=== PATIENT | female | born 1970 | race Caucasian/White ===

== ENCOUNTER 2017-12-17 13:47 | Emergency (ER) | payer BC ==
[2017-12-17 15:13] VITALS: BP 118/82
--- NOTE | 2017-12-17 16:13 | UC ---
Complaint Female HPI - HPI Summary HPI Summary: This patient is a 47 year old F with a current dx of MS presenting to [facility] accompanied by a male with a chief complaint of foul smelling urine that began . The patient rates the pain 0/10 in severity. Patient reports urinary incontinence, loose stool, chills, diaphoresis, and increased LE muscle spasms which are usually controlled by a Baclofen pump. Pt states that the illness began with muscles spasm and diaphoresis which progressed to current sx. Pt is in a motorized wheel chair and reports being numb from the neck down. Pt states she has had 5 UTIs in the last year and bladder scans have showed 200-300 of urinary retention at baseline which causes bacterial colonization. She states she has not had muscle spasms with prior UTIs. Pt usually self caths at home but she is in town for vacation and has not been doing that because it is too difficult. She has had MS for 24 years. 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 Onset/Duration: Lasting Days - 1, Still Present Timing: Constant Severity Initially: Mild Severity Currently: None Pain Intensity: 0 Pain Scale Used: 0-10 Numeric Associated Signs And Symptoms: Negative: Back Pain, Nausea - Allergies/Home Medications Allergies/Adverse Reactions: Allergies Allergy/AdvReac Type Severity Reaction Status Date / Time No Known Allergies Allergy Verified 12/17/17 15:14 Home Medications: Home Medications Baclofen INTRATHECAL (NF) [Gablofen (NF)] 40,000 mcg INTRATHEC DAILY 12/17/17 [ History Confirmed 12/17/17] Dimethyl Fumarate(NF) [Tecfidera(NF)] 240 mg PO BID 12/17/17 [History Confirmed 12/17/17] LORazepam TAB(*) [Ativan 0.5 MG TAB (*)] 0.5 mg PO TID PRN 12/17/17 [History Confirmed 12/17/17] Solifenacin(NF) [Vesicare(NF)] 10 mg PO EVERY OTHER DAY 12/17/17 [History Confirmed 12/17/17] PMH/Surg Hx/FS Hx/Imm Hx Endocrine History: Other Other Endocrine History: MS Other History Of: Negative For: HIV - Surgical History Surgical History: Yes Surgery Procedure, Year, and Place: 2017 - Family History Known Family History: Negative: Blood Disorder - Social History Alcohol Use: None Substance Use Type: None Smoking Status (MU): Never Smoked Tobacco Review of Systems Constitutional: Chills, Other - diaphoresis Gastrointestinal: Other - loose stool Genitourinary: Other - foul smelling urine and urinary incontinence Musculoskeletal: Other: - increased muscle spasms All Other Systems Reviewed And Are Negative: Yes Physical Exam Triage Information Reviewed: Yes Appearance: Ill-Appearing - chronic ill appearance, MS Vital Signs: Initial Vital Signs Temp 99.6 F 12/17/17 15:07 Pulse 78 12/17/17 15:07 Resp 16 12/17/17 15:07 BP 118/82 12/17/17 15:07 Pulse Ox 100 12/17/17 15:07 Vital Signs Reviewed: Yes ENT Exam: Normal ENT: Positive: Pharynx normal, TMs normal Neck: Positive: Nontender Respiratory: Positive: Lungs clear, Normal breath sounds, No respiratory distress Cardiovascular: Positive: RRR, No Murmur Abdomen Description: Positive: Nontender Musculoskeletal: Positive: Other: - no deformity Neurological: Positive: Other: - alert and oriented times three. Spasms in both lower extremities at times. Wheel chair bound. Psychological: Positive: Normal Response To Family Skin: Negative: rashes Complaint Female Dx - Course Course Of Treatment: 47 yr old with MS and chronic wheel chair use, chronic urine retention, not feeling well, and spasm in muscles. I have recommened she go to the ER for a lab evaluation and further work up. They do not want an ambulance and they prefer to go to the ER with driving her. - Differential Dx/Diagnosis Provider Diagnoses: UTI. Multiple sclerosis. Discharge - Sign-Out/Discharge Documenting (check all that apply): Patient Departure All imaging exams completed and their final reports reviewed: No Studies - Discharge Plan Condition: Good Disposition: HOME-RECOMMEND TO ED Patient Education Materials: Urinary Tract Infection in Women (ED), Multiple Sclerosis (DC) Referrals: No Primary Care Phys,NOPCP [Primary Care Provider] - Additional Instructions: [address] , [place] [address] Please go the ER at [facility] For further work up and evaluation for all of your symptoms upon leaving here. - Billing Disposition and Condition Condition: GOOD Disposition: Home-Recommend to ED - Attestation Statements Document Initiated by Scribe: Yes Documenting Scribe: Oren Bentley Provider For Whom Scribe is Documenting (Include Credential): Rufus Webb MD Scribe Attestation: I, Oren Bentley , scribed for Rufus Webb MD on 12/17/17 at 1623. Scribe Documentation Reviewed: Yes Provider Attestation: The documentation as recorded by the Oren cordero accurately reflects the service I personally performed and the decisions made by me, Rufus Webb MD
== END 2017-12-17 16:30 | disposition home health service (06) ==
LOC: UCEAST 13:47
DX: N39.0 Urinary tract infection, site not specified (principal); G35 Multiple sclerosis; M62.838 Other muscle spasm; Z79.899 Other long term (current) drug therapy; Z99.3 Dependence on wheelchair
CPT/HCPCS: 51701; 81003; 87077; 87086; 99202; G0463

== ENCOUNTER 2017-12-17 17:01 | Emergency (ER) | payer BC ==
[2017-12-17 18:28] LABS: ABS Basophils 0 10^3/ul (0-0.2); ABS Eosinophils 0.2 10^3/ul (0-0.6); ABS Lymphocytes 0.7 10^3/ul (1.0-4.8); ABS Monocytes 0.4 10^3/ul (0-0.8); ABS Neutrophils 2.6 10^3/ul (1.5-7.7); ABS Nucleated RBC 0 10^3/ul; Eosinophil % 4.5 % (0-6); Hematocrit 42 % (35-47); Hemoglobin 14.1 g/dl (12.0-16.0); Lymphocyte % 18.1 % (25-47); Mean Corpuscular HGB Conc 34 g/dl (31-36); Mean Corpuscular Hemoglobin 33 pg (27-31); Mean Corpuscular Volume 97 fL (80-97); Mean Platelet Volume 8.4 um3 (7.4-10.4); Nucleated Red Blood Cells % 0.3; Platelet Count 224 10^3/ul (150-450); Red Cell Distribution Width 14 % (10.5-15); White Blood Count 3.9 10^3/ul (3.5-10.8)
[2017-12-17 18:38] LABS: EGFR Non-African American 116.5 (>60)
[2017-12-17] MEDS ORDERED: NS 0.9% 1000 ML* 1,000 ML IV ONE (18:57)
[2017-12-17 19:13] LABS: Urine Appearance Cloudy; Urine Blood 2+ (Negative); Urine Color Yellow; Urine Ketones 1+ (Negative); Urine Protein Negative (Negative); Urine Red Blood Cell 2+(6-10/hpf) (Absent); Urine Specific Gravity 1.008 (1.010-1.030); Urine Urobilinogen Negative (Negative); Urine White Blood Cell 3+(>20/hpf) (Absent)
[2017-12-17] MEDS ORDERED: cefTRIAXone(*) 1 GM in NS 0.9% 50 ML* 50 ML IVPB ONE (19:26)
--- NOTE | 2017-12-17 19:50 | ED ---
GI/ HPI - HPI Summary HPI Summary: Patient with history of MS and decreased sensation from chest down sent from urgent care to ED complains of urinary incontinence and foul odor to urine starting yesterday. Patient has history of recurrent UTIs this year. States she is unable to sense whether she has burning or pain with urination due to decreased sensation from MS. States normal symptoms of UTI are incontinence and foul odor. Patient states she also has had chills and sweats which is uncommon with her UTI. Patient also complains of increasing leg spasms which are more frequent and worse in intensity. Patient has baclofen pump for same, chem bolus and has also been adding oral baclofen and Ativan tonight with no improvement. Patient is here on vacation from [place] and is leaving tomorrow. Denies fever, cough, sore throat, CP, SOB, N/V/D, abdominal pain, change in BM. Medical history is MS. 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 Onset/Duration: Started Days Ago Timing: Constant Severity: Mild Current Severity: None Pain Intensity: 0 Associated Signs and Symptoms: Positive: Negative - Allergy/Home Medications Allergies/Adverse Reactions: Allergies Allergy/AdvReac Type Severity Reaction Status Date / Time No Known Allergies Allergy Verified 12/17/17 17:08 PMH/Surg Hx/FS Hx/Imm Hx Endocrine/Hematology History: Denies: Hx Anticoagulant Therapy Cardiovascular History: Denies: Hx Cardiac Arrest History: Denies: Hx Dialysis Neurological History: Denies: Hx CVA - Surgical History Surgery Procedure, Year, and Place: 2017 Infectious Disease History: No Infectious Disease History: Denies: Traveled Outside the [place] in Last 30 Days - Family History Known Family History: Negative: Blood Disorder - Social History Alcohol Use: None Substance Use Type: Reports: None Smoking Status (MU): Never Smoked Tobacco Review of Systems Positive: Chills Eyes: Negative ENT: Negative Cardiovascular: Negative Respiratory: Negative Gastrointestinal: Negative Positive: incontinence, other Positive: Other Skin: Negative Neurological: Negative Psychological: Normal All Other Systems Reviewed And Are Negative: Yes Physical Exam - Summary Physical Exam Summary: No Leg spasms noted here in the ED during exam. Triage Information Reviewed: Yes Vital Signs On Initial Exam: Initial Vitals Temp Pulse Resp BP Pulse Ox 98.9 F 78 18 115/43 99 12/17/17 17:03 12/17/17 17:03 12/17/17 17:03 12/17/17 17:03 12/17/17 17:03 Vital Signs Reviewed: Yes Appearance: Positive: Well-Appearing Skin: Positive: Warm Head/Face: Positive: Normal Head/Face Inspection Eyes: Positive: Normal Neck: Positive: Supple Respiratory/Lung Sounds: Positive: Clear to Auscultation Cardiovascular: Positive: Normal Abdomen Description: Positive: Nontender Musculoskeletal: Positive: Normal Neurological: Positive: Normal Psychiatric: Positive: Normal AVPU Assessment: Alert - [place] Coma Scale Best Eye Response: 4 - Spontaneous Best Motor Response: 6 - Obeys Commands Best Verbal Response: 5 - Oriented Coma Scale Total: 15 Diagnostics - Vital Signs Vital Signs Temp Pulse Resp BP Pulse Ox 12/17/17 17:03 98.9 F 78 18 115/43 99 - Laboratory Lab Results: Lab Results 12/17/17 12/17/17 12/17/17 Range/Units 18:16 18:16 18:16 WBC 3.9 (3.5-10.8) 10^3/ul RBC 4.30 (4.00-5.40) 10^6/ul Hgb 14.1 (12.0-16.0) g/dl Hct 42 (35-47) % MCV 97 (80-97) fL MCH 33 H (27-31) pg MCHC 34 (31-36) g/dl RDW 14 (10.5-15) % Plt Count 224 (150-450) 10^3/ul MPV 8.4 (7.4-10.4) um3 Neut % (Auto) 66.2 (38-83) % Lymph % (Auto) 18.1 L (25-47) % [place] % (Auto) 10.1 H (0-7) % Eos % (Auto) 4.5 (0-6) % Baso % (Auto) 1.1 (0-2) % Absolute Neuts (auto) 2.6 (1.5-7.7) 10^3/ul Absolute Lymphs (auto) 0.7 L (1.0-4.8) 10^3/ul Absolute Monos (auto) 0.4 (0-0.8) 10^3/ul Absolute Eos (auto) 0.2 (0-0.6) 10^3/ul Absolute Basos (auto) 0 (0-0.2) 10^3/ul Absolute Nucleated RBC 0 10^3/ul Nucleated RBC % 0.3 Sodium 138 (135-145) mmol/L Potassium 4.1 (3.5-5.0) mmol/L Chloride 98 L (101-111) mmol/L Carbon Dioxide 30 (22-32) mmol/L Anion Gap 10 (2-11) mmol/L BUN 19 (6-24) mg/dL Creatinine 0.56 (0.51-0.95) mg/dL Est GFR ( Amer) 141.0 (>60) Est GFR (Non-Af Amer) 116.5 (>60) BUN/Creatinine Ratio 33.9 H (8-20) Glucose 85 (70-100) mg/dL Lactic Acid 0.8 (0.5-2.0) mmol/L Calcium 10.2 (8.6-10.3) mg/dL Total Bilirubin 0.50 (0.2-1.0) mg/dL AST 21 (13-39) U/L ALT 21 (7-52) U/L Alkaline Phosphatase 78 (34-104) U/L Total Protein 7.6 (6.4-8.9) g/dL Albumin 4.7 (3.2-5.2) g/dL Globulin 2.9 (2-4) g/dL Albumin/Globulin Ratio 1.6 (1-3) Beta HCG, Quant 3.62 mIU/mL Urine Color Urine Appearance Urine pH (5-9) Ur Specific [place] (1.010-1.030) Urine Protein (Negative) Urine Ketones (Negative) Urine Blood (Negative) Urine Nitrate (Negative) Urine Bilirubin (Negative) Urine Urobilinogen (Negative) Ur Leukocyte Esterase (Negative) Urine WBC (Auto) (Absent) Urine RBC (Auto) (Absent) Urine Bacteria (Absent) Urine Glucose (Negative) Urine Ascorbic Acid (Negative) 12/17/17 Range/Units 19:02 WBC (3.5-10.8) 10^3/ul RBC (4.00-5.40) 10^6/ul Hgb (12.0-16.0) g/dl Hct (35-47) % MCV (80-97) fL MCH (27-31) pg MCHC (31-36) g/dl RDW (10.5-15) % Plt Count (150-450) 10^3/ul MPV (7.4-10.4) um3 Neut % (Auto) (38-83) % Lymph % (Auto) (25-47) % [place] % (Auto) (0-7) % Eos % (Auto) (0-6) % Baso % (Auto) (0-2) % Absolute Neuts (auto) (1.5-7.7) 10^3/ul Absolute Lymphs (auto) (1.0-4.8) 10^3/ul Absolute Monos (auto) (0-0.8) 10^3/ul Absolute Eos (auto) (0-0.6) 10^3/ul Absolute Basos (auto) (0-0.2) 10^3/ul Absolute Nucleated RBC 10^3/ul Nucleated RBC % Sodium (135-145) mmol/L Potassium (3.5-5.0) mmol/L Chloride (101-111) mmol/L Carbon Dioxide (22-32) mmol/L Anion Gap (2-11) mmol/L BUN (6-24) mg/dL Creatinine (0.51-0.95) mg/dL Est GFR ( Amer) (>60) Est GFR (Non-Af Amer) (>60) BUN/Creatinine Ratio (8-20) Glucose (70-100) mg/dL Lactic Acid (0.5-2.0) mmol/L Calcium (8.6-10.3) mg/dL Total Bilirubin (0.2-1.0) mg/dL AST (13-39) U/L ALT (7-52) U/L Alkaline Phosphatase (34-104) U/L Total Protein (6.4-8.9) g/dL Albumin (3.2-5.2) g/dL Globulin (2-4) g/dL Albumin/Globulin Ratio (1-3) Beta HCG, Quant mIU/mL Urine Color Yellow Urine Appearance Cloudy Urine pH 7.0 (5-9) Ur Specific [place] 1.008 L (1.010-1.030) Urine Protein Negative (Negative) Urine Ketones 1+ A (Negative) Urine Blood 2+ A (Negative) Urine Nitrate Negative (Negative) Urine Bilirubin Negative (Negative) Urine Urobilinogen Negative (Negative) Ur Leukocyte Esterase 3+ A (Negative) Urine WBC (Auto) 3+(>20/hpf) A (Absent) Urine RBC (Auto) 2+(6-10/hpf) A (Absent) Urine Bacteria 1+ A (Absent) Urine Glucose Negative (Negative) Urine Ascorbic Acid * A (Negative) Result Diagrams: 12/17/17 18:16 12/17/17 18:16 Lab Statement: Any lab studies that have been ordered have been reviewed, and results considered in the medical decision making process. GIGU Course/Dx - Course Course Of Treatment: Patient with history of MS and decreased sensation from chest down sent from urgent care to ED complains of urinary incontinence and foul odor to urine starting yesterday. Patient has history of recurrent UTIs this year. States she is unable to sense whether she has burning or pain with urination due to decreased sensation from MS. States normal symptoms of UTI are incontinence and foul odor. Patient states she also has had chills and sweats which is uncommon with her UTI. Patient also complains of increasing leg spasms which are more frequent and worse in intensity. Patient has baclofen pump for same, chem bolus and has also been adding oral baclofen and Ativan tonight with no improvement. Patient is here on vacation from [place] and is leaving tomorrow. Denies fever, cough, sore throat, CP, SOB, N/V/D, abdominal pain, change in BM. Medical history is MS. Physical exam: No Leg spasms noted here in the ED during exam. Patient has history of MS, complained of increasing frequency and intensity of leg spasms. Patient states she has baclofen pump, is able to bolus herself, and has also been taking oral baclofen and Ativan at night with no relief. Discussed patient with Dr. Tello promotions producer for patient's neurology group who recommended the same treatment patient has already initiated and follow-up with clinic tomorrow. Patient's is here on vacation and will be returning to [place] tomorrow. Patient denies any other symptoms related to her MS. Patient also had UTI, was given Rocephin 1 g IV here in the ED and Rx for Bactrim. Vital signs within normal limits and stable. Labs unremarkable. - Diagnoses Provider Diagnoses: UTI (urinary tract infection) Discharge - Sign-Out/Discharge Documenting (check all that apply): Patient Departure - Discharge Plan Condition: Stable Disposition: HOME Patient Education Materials: Urinary Tract Infection in Women (ED) Referrals: No Primary Care Phys,NOPCP [Primary Care Provider] - Additional Instructions: Follow-up with your primary care and neurology in [place]. Return to the ED for any new or worsening symptoms - Billing Disposition and Condition Condition: STABLE Disposition: Home
[2017-12-17 20:36] VITALS: BP 112/63
== END 2017-12-17 20:35 | disposition home or self-care (01) ==
LOC: ED 17:01
DX: N39.0 Urinary tract infection, site not specified (principal)
CPT/HCPCS: 36415; 80053; 81003; 81015; 83605; 84702; 85025; 96365; 99282; J0696